=== PATIENT | female | born 1965 | race Two or more races ===

== ENCOUNTER → 2018-02-13 | Outpatient (CLI) | payer MEDICARE, MEDICAID | END | disposition home or self-care (01) | LOC: MAMMO 07:09 | PROVIDERS: ATTEND Internal Medicine Nephrology | DX: Z12.31 Encounter for screening mammogram for malignant neoplasm of breast (principal) | CPT/HCPCS: 77067 ==

== ENCOUNTER → 2018-05-21 | Outpatient (CLI) | payer MEDICARE, MEDICAID | END | disposition home or self-care (01) | LOC: RAD 15:18 | PROVIDERS: ATTEND Internal Medicine Nephrology | DX: J18.9 Pneumonia, unspecified organism (principal) | CPT/HCPCS: 71046 ==

== ENCOUNTER → 2023-04-03 | Outpatient (CLI) | payer MEDICARE, MEDICAID | END | disposition home or self-care (01) | LOC: MAMMO 08:38 | PROVIDERS: ATTEND Internal Medicine Nephrology | DX: Z12.31 Encounter for screening mammogram for malignant neoplasm of breast (principal) | CPT/HCPCS: 77067 ==

== ENCOUNTER 2023-11-07 13:24 | Emergency (ER) | payer MEDICARE, MEDICAID ==
[~2023-11-07] VITALS: Ht 167.6 cm; Wt 113.0 kg
[2023-11-07 13:33] VITALS: O2SAT 99
[2023-11-07] MEDS ORDERED: CEPH500C2 MT (14:14)
[2023-11-07] MEDS ORDERED: NYST15PO4 TP (14:14)
[2023-11-07] MEDS ORDERED: ONDA4TAB50 MT (14:14)
[2023-11-07] MEDS ORDERED: NAPR-681 PO (14:14)
[2023-11-07] MEDS ORDERED: SULF1TAB48 MT (14:14)
[2023-11-07 14:38] VITALS: BP 134/83
[2023-11-07] MEDS: KETOROLAC 30MG/ML VIAL IM STA (14:38)
[2023-11-07] MEDS: ONDANSETRON HCL 4MG/2ML INJ IM STA (14:38)
[2023-11-07] MEDS: BACITRACIN ZINC OINT UDPKT TOP ONE (14:38)
[2023-11-07 14:40] VITALS: PULSE 99; RESP 18; TEMP 97.8
== END 2023-11-07 14:41 | disposition home or self-care (01) ==
LOC: ER 13:24
DX: L02.211 Cutaneous abscess of abdominal wall (principal); L30.4 Erythema intertrigo; J45.909 Unspecified asthma, uncomplicated; E11.9 Type 2 diabetes mellitus without complications
CPT/HCPCS: 99284; 96372; J1885; J2405

== ENCOUNTER 2023-11-10 11:38 | Emergency (ER) | payer MEDICARE, MEDICAID ==
[~2023-11-10] VITALS: Ht 167.6 cm; Wt 96.0 kg
[~2023-11-10 11:38] MED LIST: CEPH500C2 MT; NAPR-681 PO; NYST15PO4 TP; ONDA4TAB50 MT; SULF1TAB48 MT
[2023-11-10 11:53] VITALS: BP 173/90; PULSE 101; RESP 16; TEMP 98.9; O2SAT 99
== END 2023-11-10 14:50 | disposition home or self-care (01) ==
LOC: ER 11:38
DX: L02.419 Cutaneous abscess of limb, unspecified (principal); J45.909 Unspecified asthma, uncomplicated; E11.9 Type 2 diabetes mellitus without complications; Z96.653 Presence of artificial knee joint, bilateral
CPT/HCPCS: 99281

== ENCOUNTER 2024-01-02 15:22 | Emergency (ER) | payer MEDICARE, MEDICAID ==
[~2024-01-02] VITALS: Ht 162.6 cm; Wt 99.8 kg
[2024-01-02 15:37] VITALS: O2SAT 100
[2024-01-02] MEDS ORDERED: MUPI1OIN4 TP (16:32)
[2024-01-02 16:45] VITALS: BP 149/68; PULSE 77; RESP 16; TEMP 97.9
== END 2024-01-02 16:52 | disposition home or self-care (01) ==
LOC: ER 15:22
DX: S00.01XA Abrasion of scalp, initial encounter (principal); J45.909 Unspecified asthma, uncomplicated; Z96.659 Presence of unspecified artificial knee joint; Z96.649 Presence of unspecified artificial hip joint; W57.XXXA Bitten or stung by nonvenomous insect and other nonvenomous arthropods, initial encounter; Y93.89 Activity, other specified; Y92.89 Other specified places as the place of occurrence of the external cause; Y99.8 Other external cause status
CPT/HCPCS: 99283